=== PATIENT | male | born 1980 | race Caucasian/White ===

== ENCOUNTER 2019-11-17 14:25 | Emergency (ER) | payer OTHER ==
[~2019-11-17] VITALS: Ht 188 cm; Wt 93.0 kg
[2019-11-17 15:54] LABS: HEMATOCRIT 44.3 % (39.0-50.0); HEMOGLOBIN 14.3 g/dl (14.0-18.0); IMMATURE GRANULOCYTES 0.4 % (0.0-5.0); MEAN CELL VOLUME 84.5 fL CALC (80.0-100.0); MEAN CORPUSCULAR HGB 27.3 pG CALC (26.0-32.0); MEAN CORPUSCULAR HGB CONC 32.3 g/dL CAL (32.0-36.0); NEUT# 4.19 thou/uL (1.82-7.42); RED BLOOD COUNT 5.24 mill/uL (4.70-6.10); RED CELL DISTRI WIDTH 12.2 % (11.5-15.5)
[2019-11-17 16:29] LABS: ALBUMIN 4.3 g/dL (3.2-5.0); ALKALINE PHOSPHATASE 82 u/l (38-126); AMYLASE 38 u/l (30-110); ANION GAP 13 (6-22 (CALC)); BILIRUBIN, TOTAL 0.7 mg/dL (0.0-1.4); BUN 13 mg/dL (9-20); BUN/CREATININE RATIO 14 (12-20 (CALC)); CARBON DIOXIDE 27 mmol/l (22-30); CHLORIDE 96 mmol/l (95-108); GFR > 60 ML/MIN (>=60 (CALC)); GFR FOR AFR.AMER. > 60 ML/MIN (>=60 (CALC)); LIPASE 111 u/l (23-300); POTASSIUM 4.1 mmol/l (3.5-5.1); SGOT/AST 61 u/l (17-59); SODIUM 131 mmol/l (137-146)
[2019-11-17 16:39] LABS: URINE BILIRUBIN - DIPSTICK NEGATIVE (NEGATIVE); URINE BLOOD DIPSTICK NEGATIVE (NEGATIVE); URINE COLOR YELLOW; URINE GLUCOSE - DIPSTICK NEGATIVE (NEGATIVE); URINE KETONE NEGATIVE (NEGATIVE); URINE LEUK ESTERASE NEGATIVE (NEGATIVE); URINE NITRITE - DIPSTICK NEGATIVE (Negative); URINE PROTEIN - DIPSTICK NEGATIVE (NEG-TRACE); URINE UROBILINOGEN - DIPSTICK 0.2 E.U./dL (0.2)
[2019-11-17] MEDS ORDERED: ZITHROMAX250 MG PO (17:25)
[2019-11-17 17:50] VITALS: BP 123/70
--- NOTE | 2019-11-22 08:20 | NUR ---
Notified patient of positive Covid results. Advised patient to quarantine until contacted by the [facility] with further instructions. Patient denies symptoms at this time. Advised patient to return to ED with difficulty breathing or other urgent needs. Patient verbalized understanding.
== END 2019-11-17 17:50 | disposition home or self-care (01) | DRG 179 ==
LOC: ED 14:25
DX: U07.1 COVID-19 (principal); J06.9 Acute upper respiratory infection, unspecified